=== PATIENT | male | born 1995 | race Two or more races ===

== ENCOUNTER 2018-03-11 16:57 | Emergency (ER) | payer OTHER ==
[2018-03-11 16:50] VITALS: BP 139/63; BMI 31.2
[~2018-03-11 16:57] MED LIST: NS 1000 ML 1,000 ML ONE
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
[2018-03-11] MEDS ORDERED: ADACEL TDaP IM ONE ×2 (18:42→18:44)
[2018-03-11] MEDS ORDERED: NEOSPORIN OINT ONE (20:07)
== END 2018-03-11 20:13 | disposition home or self-care (01) ==
LOC: EDBD → EDUNIT# → ER 16:57
DX: S60.221A Contusion of right hand, initial encounter (principal); S63.8X1A Sprain of other part of right wrist and hand, initial encounter; S60.511A Abrasion of right hand, initial encounter; V89.2XXA Person injured in unspecified motor-vehicle accident, traffic, initial encounter
CPT/HCPCS: 70450; 71045; 72125; 72170; 73130; 90471; 96365; 99282; 99283; A4222